=== PATIENT | male | born 1960 | race African-American/Black ===

== ENCOUNTER 2018-08-23 17:55 | Emergency (ER) | payer BC, OTHER | END 2018-08-23 20:21 | disposition home or self-care (01) | LOC: BURERS 17:55 | DX: H00.012 Hordeolum externum right lower eyelid (principal) | CPT/HCPCS: 99283 ==

== ENCOUNTER 2024-04-23 15:22 | Emergency (ER) | payer OTHER, SELFPAY ==
[2024-04-23] MEDS ORDERED: predniSONE 20 MG TAB ONE (15:48)
== END 2024-04-23 16:00 | disposition home or self-care (01) ==
LOC: BURERS 15:22
DX: R51.9 Headache, unspecified (principal); R09.81 Nasal congestion; R29.700 NIHSS score 0; I10 Essential (primary) hypertension; F17.210 Nicotine dependence, cigarettes, uncomplicated
CPT/HCPCS: 99283; J7512